=== PATIENT | female | born 1950 | race Caucasian/White ===

== ENCOUNTER 2017-04-23 10:14 | Emergency (ER) | payer OTHER, MEDICARE ==
[2017-04-23 10:25] VITALS: BP 140/78; PULSE 68; RESP 16; TEMP 98.2; O2SAT 94
--- NOTE | 2017-04-23 10:50 | EDPHY ---
H & P Time Seen by Provider: 04/23/17 10:36 HPI/ROS: CHIEF COMPLAINT: Toe pain HISTORY OF PRESENT ILLNESS: Patient is a 58-year-old female with a history of diabetes who presents emergency department with discomfort between her right 4th and 5th toe. She has noticed a small lesion on the lateral aspect of her 4th toe. This causes her moderate to severe pain when ambulating. She has not noted any trauma or fall. She has been tracking her glucose. This morning it was 150s. She has not had either ulcerations or lesions on her feet. She does have mild decreased sensation and mild tingling on both her lower extremities for the past few months. She has seen Dr. Mcgowan for this. REVIEW OF SYSTEMS: My complete review of systems is negative except as mentioned in the HPI. Past Medical/Surgical History: Includes diabetes Social history: The patient does not drink alcohol. She does not smoke. Physical Exam: Vitals noted General Appearance: [Alert and no distress]. Well-appearing. Head: [Pupils equal. Normal]. Respiratory: [No respiratory distress]. Clear to auscultation bilaterally. Cardiac: [regular rate and rhythm]. Extremities: [Normal appearing]. Patient's right lower extremity is not swollen. There is no foot erythema. The patient has a small lesion on the lateral aspect of her 4th digit. This is fluctuant and tender to palpation. There is no surrounding erythema. No streaking of the foot. No ulceration. Skin: No rashes or lesions. Neuro: [Alert. Normal mood and affect]. Constitutional: Initial Vital Signs Temperature (C) 36.8 C 04/23/17 10:20 Heart Rate 68 04/23/17 10:20 Respiratory Rate 16 04/23/17 10:20 Blood Pressure 140/78 H 04/23/17 10:20 O2 Sat (%) 94 04/23/17 10:20 O2 Delivery Mode Room Air Allergies/Adverse Reactions: No Known Allergies Allergy (Unverified 04/23/17 10:55) Home Medications: Medication Instructions Recorded ASPIRIN 04/23/17 Cephalexin [Keflex (*)] 500 mg PO QID 7 Days 04/23/17 Jardiance 04/23/17 Lisinopril 04/23/17 Metformin HCl 04/23/17 SIMVASTATIN 04/23/17 TOVIAZ 04/23/17 Tradjenta 04/23/17 Medical Decision Making Procedures: Procedure: Abscess drainage right 4th toe. The patient's abscess was located on the [right 4th toe]. I obtained verbal consent from the patient to drain the abscess who was informed about the possibility of bleeding and pain. Patient was anesthetized with 1% lidocaine. The abscess was incised with 11 blade scalpel and a small amount of purulent drainage was expressed. I irrigated the wound and placed some packing. The patient tolerated the procedure well. The procedure was performed by myself. ED Course/Re-evaluation: In the emergency department I discussed possible etiologies with the patient. I answered all her questions. She consented I&D. A small amount of pus from the lesion was obtained. The wound was irrigated and packed. She is given follow-up with Dr. conor felipe as well as the support assistant nutrition aide. I reviewed recommended treatment for diabetic foot ulceration. Keflex is indicated. She will be given 5 mg 4 times daily. She is given warnings prior to leaving. She will return with worsening symptoms. Differential Diagnosis: My differential includes but is not limited to abscess, diabetic foot infection , ulceration, cellulitis, peripheral vascular disease Departure - Departure Disposition: Home, Routine, Self-Care Clinical Impression: Foot abscess, right Condition: Good Instructions: Abscess (ED) Additional Instructions: You have a small abscess on the lateral aspect of your toe. A small amount of pus was removed. Keep this wound clean and dry. You need close follow-up with the support assistant as well as your primary care physician. Take your entire course of antibiotics. Referrals: Marquis Wells DPM [Doctor of Podiatric Medicine] - 2-3 days, call for appt. Asad Mcgowan MD [Primary Care Provider] - 2-3 days, call for appt. Prescriptions: Cephalexin [Keflex (*)] 500 mg PO QID 7 Days
[2017-04-23] MEDS ORDERED: CEPHALEXIN 500 MG CAP PO ONE (10:56)
== END 2017-04-23 11:23 | disposition home or self-care (01) ==
LOC: CED 10:14
PROC: 0H9MXZZ Drainage of Right Foot Skin, External Approach (ICD-10-PCS; principal; 2017-04-23)
DX: L02.611 Cutaneous abscess of right foot (principal); E11.9 Type 2 diabetes mellitus without complications; Z79.82 Long term (current) use of aspirin; Z79.84 Long term (current) use of oral hypoglycemic drugs

== ENCOUNTER → 2017-04-26 | Outpatient (CLI) | payer OTHER, MEDICARE | LOC: BMCIMAGING 12:23 | PROVIDERS: ATTEND Podiatrist Foot & Ankle Surgery | DX: L97.519 Non-pressure chronic ulcer of other part of right foot with unspecified severity (principal) ==

== ENCOUNTER → 2017-06-20 | Outpatient (CLI) | payer OTHER, MEDICARE | LOC: CIMAGING 05-03 07:59 | PROVIDERS: ATTEND Internal Medicine Hematology & Oncology | DX: Z12.31 Encounter for screening mammogram for malignant neoplasm of breast (principal); Z80.3 Family history of malignant neoplasm of breast; Z85.3 Personal history of malignant neoplasm of breast | CPT/HCPCS: G0202 ==

== ENCOUNTER → 2017-08-19 | Outpatient (CLI) | payer OTHER, MEDICARE | LOC: CIMAGING 09:29 | PROVIDERS: ATTEND Internal Medicine | DX: S33.140D Subluxation of L4/L5 lumbar vertebra, subsequent encounter (principal) | CPT/HCPCS: 72100; 90732; G0009; G0402 ==

== ENCOUNTER → 2017-08-28 | Outpatient (CLI) | payer OTHER, MEDICARE | LOC: FIMAGING 09:37 | PROVIDERS: ATTEND Internal Medicine | DX: M51.36 Other intervertebral disc degeneration, lumbar region (principal); M51.26 Other intervertebral disc displacement, lumbar region ==

== ENCOUNTER → 2018-06-21 | Outpatient (CLI) | payer OTHER, MEDICARE | LOC: CIMAGING 07:03 | PROVIDERS: ATTEND Internal Medicine | DX: Z12.31 Encounter for screening mammogram for malignant neoplasm of breast (principal) ==

== ENCOUNTER → 2018-11-13 | Outpatient (CLI) | payer OTHER, MEDICARE | LOC: BMCIMAGING 14:23 | PROVIDERS: ATTEND Podiatrist Foot & Ankle Surgery | DX: M19.071 Primary osteoarthritis, right ankle and foot (principal); M19.072 Primary osteoarthritis, left ankle and foot; M20.11 Hallux valgus (acquired), right foot; M20.12 Hallux valgus (acquired), left foot ==